=== PATIENT | female | born 1960 | race Caucasian/White ===

== ENCOUNTER 2016-12-13 06:08 | Day surgery (SDC) | payer OTHER ==
[~2016-12-13] VITALS: Ht 162.6 cm; Wt 86.2 kg
[2016-12-13] MEDS ORDERED: ZOCOR10 MG PO (06:57)
[2016-12-13] MEDS ORDERED: TOPROL XL25 MG PO (06:57)
[2016-12-13] MEDS ORDERED: BUPIVACAINE-MPF/EPI 0.25% 30 ML VIAL INJ ONE (07:33)
[2016-12-13] MEDS ORDERED: DEXAMETHASONE 4 MG/ML VIAL IVP ONE (07:45)
[2016-12-13] MEDS ORDERED: SUCCINYLCHOLINE CHLORIDE 200 MG/10 ML VIAL IV ONE (07:45)
[2016-12-13] MEDS ORDERED: ONDANSETRON 4 MG/2 ML VIAL IVP ONE (07:45)
[2016-12-13] MEDS ORDERED: GLYCOPYRROLATE 0.2 MG/ML VIAL IV ONE (07:45)
[2016-12-13] MEDS ORDERED: PROPOFOL 200 MG/20 ML VIAL IV ONE (07:45)
[2016-12-13] MEDS ORDERED: DESFLURANE 240 ML BTL INH ONE (07:45)
[2016-12-13] MEDS ORDERED: ROCURONIUM 50 MG/5 ML VIAL IV ONE (07:45)
[2016-12-13] MEDS ORDERED: NEOSTIGMINE 1:1000 10 MG/10 ML VIAL IM ONE (07:45)
[2016-12-13] MEDS ORDERED: KETOROLAC 60 MG/2 ML VIAL IM ONE (07:45)
[2016-12-13] MEDS ORDERED: fentaNYL 0.05 MG/ML VIAL ONE (07:56)
[2016-12-13] MEDS ORDERED: MIDAZOLAM 2 MG/2 ML VIAL ONE (07:56)
[2016-12-13] MEDS ORDERED: MEPERIDINE 50 MG/ML SYR ONE (07:56)
[2016-12-13] MEDS ORDERED: MEPERIDINE 25 MG/ML SYR IVP PRN ×2 (08:50)
[2016-12-13] MEDS ORDERED: METOCLOPRAMIDE 10 MG/2 ML INJ VIAL IVP PRN (08:50)
[2016-12-13] MEDS ORDERED: MIDAZOLAM 2 MG/2 ML VIAL IVP SCH (08:55)
[2016-12-13] MEDS ORDERED: NACL 0.9% 1,000 ML IV SCH (09:23)
[2016-12-13] MEDS ORDERED: ONDANSETRON 4 MG/2 ML VIAL IV PRN (09:25)
[2016-12-13] MEDS ORDERED: HYDROcodone/APAP 5/325 MG 1 TAB TAB PO PRN (09:25)
[2016-12-13] MEDS ORDERED: MORPHINE SULFATE 2 MG/ML SYR IVP PRN (09:25)
[2016-12-13] MEDS ORDERED: MORPHINE SULFATE 4 MG/ML SYR IV PRN (09:25)
[2016-12-13] MEDS ORDERED: HYDROmorphone 1 MG/ML AMP IVP PRN (09:25)
== END 2016-12-13 14:35 | disposition home or self-care (01) ==
LOC: MMU 06:08 → MDS 06:08
PROVIDERS: ATTEND Surgery
DX: K80.20 Calculus of gallbladder without cholecystitis without obstruction (principal); I10 Essential (primary) hypertension; E78.5 Hyperlipidemia, unspecified; E66.9 Obesity, unspecified
CPT/HCPCS: 47562; 71010; 86886; 86900; 86901; 93005; J0330; J0690; J1100; J1885; J2175; J2250; J2405; J2704; J2710; J3010; J3490; J7030; J7060; J7120